=== PATIENT | male | born 2000 | race Hispanic/Latino ===

== ENCOUNTER 2024-08-30 21:57 | Emergency (ER) | payer SELFPAY ==
[~2024-08-30] VITALS: Ht 180.3 cm; Wt 98.9 kg
[2024-08-30] MEDS: 0.9% NACL 500ML IV.SOLN 500 ML IV ONE (22:22)
[2024-08-30 22:31] LABS: CREATININE 1.3 mg/dL (0.5-1.3); POTASSIUM 3.1 mmol/L (3.5-5.1)
[2024-08-30 22:32] LABS: AMPHET/METH SCREEN,URINE NEGATIVE (NEGATIVE); BARBITURATE SCREEN, URINE NEGATIVE (NEGATIVE); BENZODIAZEPINES SCREEN,URINE NEGATIVE (NEGATIVE); CANNABINOID SCREEN,URINE NEGATIVE (NEGATIVE); COCAINE SCREEN,URINE NEGATIVE (NEGATIVE); OPIATE SCREEN,URINE NEGATIVE (NEGATIVE); PHENCYCLIDINE SCREEN,URINE NEGATIVE (NEGATIVE)
[2024-08-30] MEDS ORDERED: PoTASSium BIcarbonate/CIT AC 25 MEQ TABLET.EFF PO ONE (23:30)
[2024-08-30] MEDS: PoTASSium BIcarbonate/CIT AC 25 MEQ TABLET.EFF ONE (23:44)
[2024-08-30 23:46] VITALS: BP 121/80; PULSE 60; RESP 14; TEMP 98.6; O2SAT 99
== END 2024-08-30 23:51 | disposition home or self-care (01) ==
LOC: EDH 21:57
DX: R61 Generalized hyperhidrosis (principal); E87.6 Hypokalemia
CPT/HCPCS: 99283; 96360; 80048; 80305; 36415; J7040